=== PATIENT | female | born 1950 | race Caucasian/White ===

== ENCOUNTER 2020-04-13 09:28 | Outpatient (CLI) | payer BC | END 2020-04-13 09:29 | disposition home or self-care (01) | LOC: BICRAD 09:28 | PROVIDERS: ATTEND Internal Medicine Rheumatology | DX: M17.0 Bilateral primary osteoarthritis of knee (principal); M25.762 Osteophyte, left knee; M25.761 Osteophyte, right knee ==

== ENCOUNTER 2020-05-18 11:45 | Outpatient (CLI) | payer BC | END 2020-05-18 11:46 | disposition home or self-care (01) | LOC: BICRAD 11:45 | PROVIDERS: ATTEND Internal Medicine Rheumatology | DX: M17.0 Bilateral primary osteoarthritis of knee (principal) ==

== ENCOUNTER 2022-09-04 10:38 | Outpatient (CLI) | payer BC | END 2022-09-04 10:39 | disposition home or self-care (01) | LOC: NM 10:38 | PROVIDERS: ATTEND Specialist | DX: M17.11 Unilateral primary osteoarthritis, right knee (principal); T84.84XA Pain due to internal orthopedic prosthetic devices, implants and grafts, initial encounter; Z96.651 Presence of right artificial knee joint | CPT/HCPCS: 78315; A9503 ==